=== PATIENT | female | born 1990 | race Caucasian/White ===

== ENCOUNTER 2018-08-13 13:17 | Emergency (ER) | payer OTHER ==
[~2018-08-13] VITALS: Wt 52.2 kg
[~2018-08-13 13:17] MED LIST: AMOXICILLIN500 MG PO; ATARAX25 MG PO; BACTRIM DS 8001 TA1 PO; CIPRO500 MG PO; CIPROFLOXACIN500 MG PO; DIFLUCAN150 MG PO; FIORICET 325 MG1 TAB PO; FLAGYL500 MG PO; FLOXIN 0.3% 00.25 ML OT; Flagyl500 M1 PO; MACROBID100 M1 PO; MOTRIN800 MG PO; Motrin,Rufen800 MG PO; NAPROSYN500 MG PO; NKHM PO; NORCO 325 MG-51 TAB PO; PEN-V500 MG PO; PERIDEX 480 ML480 ML PO; PREDNICOT20 MG PO; PRENATAL1 TA3 PO; PYRIDIUM100 MG PO; PYRIDIUM200 MG PO; ULTRAM50 MG PO; VIBRAMYCIN100 MG PO; VICO10300 PO; VICODIN ES 7501 TAB PO
[2018-08-13 13:18] VITALS: BP 106/75
[2018-08-13] MEDS ORDERED: IBUPROFEN600 MG PO (14:09)
[2018-08-13] MEDS ORDERED: AUGMENTIN 875875 MG PO (14:09)
== END 2018-08-13 14:27 | disposition home or self-care (01) ==
LOC: ED 13:17
DX: K02.9 Dental caries, unspecified (principal); Z79.899 Other long term (current) drug therapy

== ENCOUNTER 2019-08-22 03:31 | Emergency (ER) | payer OTHER ==
[~2019-08-22] VITALS: Ht 157.4 cm; Wt 56.7 kg
[~2019-08-22 03:31] MED LIST changes: +AUGMENTIN 875875 MG PO; +IBUPROFEN600 MG PO; +PYRIDIUM200 M1 PO; +SEPTDS PO
[2019-08-22] MEDS ORDERED: AMOXICILLIN500 M2 PO (04:04)
[2019-08-22 04:18] VITALS: BP 138/76
== END 2019-08-22 04:25 | disposition home or self-care (01) ==
LOC: ED 03:31
DX: K04.01 Reversible pulpitis (principal); K08.89 Other specified disorders of teeth and supporting structures; F17.200 Nicotine dependence, unspecified, uncomplicated

== ENCOUNTER 2020-06-28 11:56 | Emergency (ER) | payer OTHER ==
[~2020-06-28] VITALS: Ht 160 cm; Wt 58.5 kg
[~2020-06-28 11:56] MED LIST changes: +AMOXICILLIN500 M2 PO
[2020-06-28 12:22] VITALS: BP 95/62
[2020-06-28 13:12] LABS: BILIRUBIN NEGATIVE; BLOOD NEGATIVE (NEGATIVE); CLARITY SL CLOUDY (CLEAR); COLOR YELLOW (YELLOW); GLUCOSE NEGATIVE; KETONE NEGATIVE; SPECIFIC GRAVITY 1.015 (1.005-1.030)
[2020-06-28 13:13] LABS: LEUKO ESTERASE NEGATIVE (NEGATIVE); MUCOUS 1+; NITRITE NEGATIVE (NEGATIVE); UROBILINOGEN 0.2 E.U./dl (0.2-1.0)
== END 2020-06-28 13:36 | disposition home or self-care (01) ==
LOC: ED 11:56
PROVIDERS: Nurse Practitioner Family
DX: Z32.01 Encounter for pregnancy test, result positive (principal); O99.332 Smoking (tobacco) complicating pregnancy, second trimester; Z3A.15 15 weeks gestation of pregnancy; Z79.899 Other long term (current) drug therapy

== ENCOUNTER 2022-06-08 11:09 | Emergency (ER) | payer OTHER ==
[~2022-06-08] VITALS: Ht 160 cm; Wt 69.4 kg
[2022-06-08 11:14] VITALS: BP 133/92
[2022-06-08] MEDS ORDERED: PROVENTIL HFA6.7 GM INH (16:38)
[2022-06-08] MEDS ORDERED: PREDNISONE20 M1 PO (16:38)
== END 2022-06-08 16:46 | disposition home or self-care (01) ==
LOC: ED 11:09
DX: U07.1 COVID-19 (principal)

== ENCOUNTER 2024-12-06 08:22 | Emergency (ER) | payer OTHER ==
[~2024-12-06] VITALS: Ht 157.4 cm; Wt 68.0 kg
[~2024-12-06 08:22] MED LIST changes: +AMOX-CLAV 875-1 EACH PO; +BUPRENORPHINE HY8 MG SL; +PREDNISONE20 M1 PO; +PROVENTIL HFA6.7 GM INH
[2024-12-06 08:31] VITALS: BP 128/89
== END 2024-12-06 08:58 | disposition home or self-care (01) ==
LOC: ED 08:22
DX: N81.10 Cystocele, unspecified (principal)